=== PATIENT | female | born 1955 | race Caucasian/White ===

== ENCOUNTER 2016-10-08 18:45 | Emergency (ER) | payer MEDICARE, BC ==
--- OUTSIDE RECORDS SUMMARY | 2016-10-08 19:21 | XMS REPORT | Continuity of Care Document ---
:1955 Author Organization [facility] [place] [address] Care Team Providers Name Role Phone Jasvir Dunn Jr. Primary Care Provider [phone] Source Comments This disclosure is being made pursuant to the [employer] program and maynot contain all information available regarding this patient.[facility] Active Allergies and Adverse Reactions Not on File Current Medications Be aware that medications may not be up to date as of this document. Alwaysverify current medications with the patient. Not on file Active Problems Not on file Social History Tobacco Use Types Packs/Day Years Used Date Former Smoker Plan of Care Health Maintenance Due Date Last Done Comments Tetanus/Pertussis (1 - Tdap) 1976 Pap Smear 1978 Mammogram 2007 Well Adult Visit 2007 Influenza Immunization (#1) 2016 Colonoscopy 06/29/2019 06/29/2009 Results from Last 3 Months Not on file
--- OUTSIDE RECORDS SUMMARY | 2016-10-08 19:22 | XMS REPORT | Summary of Care ---
:1955 Author Organization [facility] Address [address] [place] [id number] Care Team Providers Name Role Phone Irina Estrada Primary Care Physician Encounter Date(s): 08/18/16 - 08/18/[address] [id number]- [place] Discharge Diagnosis: Difficulty concentrating Discharge Diagnosis: Degeneration of lumbar intervertebral disc Discharge Diagnosis: Fibromyalgia Discharge Diagnosis: Systemic lupus erythematosus Discharge Diagnosis: Recurrent depression Discharge Diagnosis: Bronchitis Discharge Diagnosis: Diabetes Discharge Diagnosis: Asthma Discharge Disposition: Discharged to Home or Self Care Attending Physician: Quintin Farmer MD Referring Physician: Quintin Faremr MD Vital Signs Most recent to oldest [Reference Range]: 1 Peripheral Pulse Rate [60-100 bpm] 70 bpm (08/18/16 3:00 PM) SpO2 [90-100 %] 97 % (08/18/16 3:00 PM) SpO2 Location Right hand (08/18/16 3:00 PM) Blood Pressure [90-130/60-90 mmHg] 122/78mmHg (08/18/16 3:00 PM) Mean Arterial Pressure, Cuff 93 mmHg (08/18/16 3:00 PM) Most recent to oldest [Reference Range]: 1 Height/Length Measured 167 cm (08/18/16 3:00 PM) Weight Dosing 109.20 kg1 (08/18/16 3:09 PM) Weight Measured 109.2 kg (08/18/16 3:00 PM) BSA Measured 2.16 m2 (08/18/16 3:00 PM) Body Mass Index Measured 39.16 kg/m2 (2/20/17 3:00 PM) 1Result Comment: This result was because the dosing weight was either not entered or it is>30 days old. This result is based off: Weight Measured August 18, 2016 15:00:00 ENGINE WIPER by Vladimir Arrieta CMA Problem List Condition Effective Dates Status Health Status Informant Activity tolerance(Confirmed) Active ADL - Support while performing an Active activity of daily living(Confirmed) Arthralgia of the lower leg(Confirmed) Active Arthritis(Confirmed) Active Cardiac murmur(Confirmed) Active Chronic pain syndrome(Confirmed) Active CVA - Cerebrovascular Active accident(Confirmed) Degenerative disc disease(Confirmed) Active Diabetes mellitus(Confirmed)1 Active Fibromyalgia(Confirmed) Active Fracture(Confirmed)2 Active Fracture of ankle(Confirmed) 1979 Active Fracture of femur(Confirmed) 1979 Active Fracture of tibia(Confirmed) 1979 Active Hypercholesterolemia(Confirmed) Active Asthma(Confirmed) Active Hypertension(Confirmed) Active Mobility impaired(Confirmed) Active OA [Osteoarthritis](Confirmed) Active Obstructive sleep apnea(Confirmed)3 Active Osteoarthrosis(Confirmed) Active Depression(Confirmed) Active Restless legs syndrome(Confirmed) Active Revision of knee 05/30/14 Active arthroplasty(Confirmed) Rotator cuff syndrome NOS(Confirmed) Active Sciatica(Confirmed) Active Septic arthritis of knee(Confirmed)4 Active Systemic lupus Active erythematosus(Confirmed) Bacterial infection of knee Active joint(Confirmed) Weakness(Confirmed) Active 1PT [id number] Allergies, Adverse Reactions, Alerts Substance Reaction Severity Status CeleBREX unusual dreams Active Cymbalta Rash Active gabapentin "fogginess" Active Lincomycin Hydrochloride [id number] 19:27:43<$> Active Lyrica Depression Active sulfa drugs Rash Active Medications albuterol 90 mcg/inh inhalation aerosol 1 puff(s), Inhale, QID, PRN for wheezing, # 18 gm, 0 Refill(s), Start Date: 16:18:37 ENGINE WIPER, Pharmacy: [facility] Start Date: 08/18/16 Status: Orderedalbuterol 90 mcg/inh inhalation aerosol 1 puff(s), Inhale, QID, PRN for wheezing, # 18 gm, 0 Refill(s), Start Date: 15:54:00 ENGINE WIPER Start Date: 08/18/16 Stop Date: 2/20/17 Status: Completedalbuterol HFA See Instructions, PRN shortness of breath or wheezing, inhale 2 puff every 4 hrs as needed Special Instructions: inhale 2 puff every 4 hrs as needed Start Date: 10/05/13 Stop Date: 01/11/14 Status: DiscontinuedALPRAZolam 1 mg oral tablet 1 tab(s), Oral, QID, PRN for anxiety, X 30 days, # 120 tab(s), 0 Refill(s), Start Date: 02/28/16 9:19:01 CDT Start Date: 02/28/16 Stop Date: 03/25/16 Status: CompletedALPRAZolam 1 mg oral tablet 1 tab(s), Oral, QID, PRN for anxiety, X 30 days, # 120 tab(s), 1 Refill(s), Start Date: 04/03/15 15:21:40 CDT Start Date: 04/03/15 Stop Date: 05/16/15 Status: CompletedALPRAZolam 1 mg oral tablet 1 tab(s), Oral, QID, PRN for anxiety, # 120 tab(s), 0 Refill(s), Start Date: 13:36:26 ENGINE WIPER Start Date: 07/25/16 Stop Date: 08/24/16 Status: OrderedALPRAZolam 1 mg oral tablet 1 tab(s), Oral, QID, PRN for anxiety, X 30 days, # 120 tab(s), 1 Refill(s), Start Date: 09/28/15 12:32:00 CDT Start Date: 09/28/15 Stop Date: 11/27/15 Status: CompletedALPRAZolam 1 mg oral tablet 1 tab(s), Oral, QID, PRN for anxiety, X 30 days, # 120 tab(s), 1 Refill(s) Start Date: 01/20/14 Stop Date: 02/07/14 Status: CompletedALPRAZolam 1 mg oral tablet 1 tab(s), Oral, QID, PRN for anxiety, X 30 days, # 120 tab(s), 0 Refill(s), Start Date: 06/24/16 10:41:01 ENGINE WIPER Start Date: 06/24/16 Stop Date: 07/25/16 Status: CompletedALPRAZolam 1 mg oral tablet 1 tab(s), Oral, QID, PRN for anxiety, # 120 tab(s), 1 Refill(s) Start Date: 11/29/13 Stop Date: 01/20/14 Status: DiscontinuedALPRAZolam 1 mg oral tablet 1 tab(s), Oral, QID, PRN for anxiety, X 30 days, # 120 tab(s), 0 Refill(s), Start Date: 04/29/16 11:20:50 CDT Start Date: 04/29/16 Stop Date: 05/28/16 Status: CompletedALPRAZolam 1 mg oral tablet 1 tab(s), Oral, QID, PRN for anxiety, called to Ruy at [facility] - they did not receive order on 01/20/14, X 30 days, # 120 tab(s), 1 Refill(s), called to pharmacy (Rx) Special Instructions: called to Ruy at [facility] - they did not receive order on Start Date: 02/07/14 Stop Date: 04/03/14 Status: CompletedALPRAZolam 1 mg oral tablet 1 tab(s), Oral, QID, PRN for anxiety Start Date: 10/05/13 Stop Date: 10/11/13 Status: DiscontinuedALPRAZolam 1 mg oral tablet 1 tab(s), Oral, QID, PRN for anxiety, # 120 tab(s), 0 Refill(s) Start Date: 11/02/13 Stop Date: 11/29/13 Status: DiscontinuedALPRAZolam 1 mg oral tablet 1 tab(s), Oral, QID, PRN for anxiety, X 30 days, # 120 tab(s), 0 Refill(s), Start Date: 01/29/16 8:35:18 CDT Start Date: 01/29/16 Stop Date: 02/28/16 Status: CompletedALPRAZolam 1 mg oral tablet 1 tab(s), Oral, QID, PRN for anxiety, X 30 days, # 120 tab(s), 0 Refill(s) Start Date: 10/12/13 Stop Date: 11/02/13 Status: CompletedALPRAZolam 1 mg oral tablet 1 tab(s), Oral, QID, PRN for anxiety, DO NOT REFILL UNTIL 11/28/15, X 30 days, # 120 tab(s), 1 Refill(s), Start Date: 11/28/15 17:21:00 CDT Special Instructions: DO NOT REFILL UNTIL 11/28/15 Start Date: 11/28/15 Stop Date: 01/29/16 Status: CompletedALPRAZolam 1 mg oral tablet 1 tab(s), Oral, QID, PRN for anxiety, rashids-Swati, # 120 tab(s), 1 Refill(s), Start Date: 07/28/14 15:29:44 ENGINE WIPER, called to pharmacy (Rx) Special Instructions: rashids-Swati Start Date: 07/28/14 Stop Date: 10/05/14 Status: DiscontinuedALPRAZolam 1 mg oral tablet 1 tab(s), Oral, QID, PRN for anxiety, X 30 days, # 120 tab(s), 0 Refill(s) Start Date: 10/11/13 Stop Date: 10/12/13 Status: CompletedALPRAZolam 1 mg oral tablet 1 tab(s), Oral, QID, PRN for anxiety, rashids-Swati, X 30 days, # 30 tab(s), 1 Refill(s), Start Date: 10/05/14 13:59:53 CDT, Pharmacy: [facility] [place] Special Instructions: rashids-Swati Start Date: 10/05/14 Stop Date: 12/11/14 Status: CompletedALPRAZolam 1 mg oral tablet 1 tab(s), Oral, QID, PRN for anxiety, X 30 days, # 120 tab(s), 0 Refill(s), Start Date: 03/25/16 13:11:30 CDT Start Date: 03/25/16 Stop Date: 04/29/16 Status: CompletedALPRAZolam 1 mg oral tablet 1 tab(s), Oral, QID, PRN for anxiety, X 30 days, # 120 tab(s), 1 Refill(s), Start Date: 07/19/15 14:26:38 ENGINE WIPER, called to pharmacy (Rx) Start Date: 07/19/15 Stop Date: 09/25/15 Status: CompletedALPRAZolam 1 mg oral tablet 1 tab(s), Oral, QID, PRN for anxiety, rashids- samia, X 30 days, # 120 tab(s), 1 Refill(s), Start Date: 04/03/14 8:55:22 CDT Special Instructions: rashids- samia Start Date: 04/03/14 Stop Date: 05/29/14 Status: CompletedALPRAZolam 1 mg oral tablet 1 tab(s), Oral, QID, PRN for anxiety, X 30 days, # 120 tab(s), 1 Refill(s), Start Date: 05/16/15 10:40:02 ENGINE WIPER, called to pharmacy (Rx) Start Date: 05/16/15 Stop Date: 07/19/15 Status: CompletedALPRAZolam 1 mg oral tablet 1 tab(s), Oral, QID, PRN for anxiety, X 30 days, # 120 tab(s), 1 Refill(s), Start Date: 01/29/15 15:37:44 CDT, called to pharmacy (Rx) Start Date: 01/29/15 Stop Date: 03/02/15 Status: CompletedALPRAZolam 1 mg oral tablet 1 tab(s), Oral, QID, PRN for anxiety, X 30 days, # 120 tab(s), 1 Refill(s), Start Date: 12/12/14 12:42:33 CDT Start Date: 12/12/14 Stop Date: 01/29/15 Status: CompletedALPRAZolam 1 mg oral tablet 1 tab(s), Oral, QID, PRN for anxiety, X 30 days, # 30 tab(s), 1 Refill(s), Start Date: 12/11/14 8:45:58 CDT Start Date: 12/11/14 Stop Date: 12/12/14 Status: CompletedALPRAZolam 1 mg oral tablet 1 tab(s), Oral, QID, PRN for anxiety, X 30 days, # 120 tab(s), 1 Refill(s), Start Date: 03/02/15 14:37:24 CDT, called to pharmacy (Rx) Start Date: 03/02/15 Stop Date: 04/03/15 Status: CompletedALPRAZolam 1 mg oral tablet 1 tab(s), Oral, QID, PRN for anxiety, rashids- Elke, X 30 days, # 120 tab(s) , 1 Refill(s), Start Date: 05/29/14 15:05:24 ENGINE WIPER, called to pharmacy (Rx) Special Instructions: nahomy Bedoya Start Date: 05/29/14 Stop Date: 07/28/14 Status: CompletedALPRAZolam 1 mg oral tablet 1 tab(s), Oral, QID, PRN for anxiety, X 30 days, # 120 tab(s), 0 Refill(s), Start Date: 05/28/16 10:37:33 ENGINE WIPER Start Date: 05/28/16 Stop Date: 06/24/16 Status: CompletedaMILoride 10 mg, Oral, Daily, 0 Refill(s), Start Date: 09/15/14 11:35:00 CDT Start Date: 09/15/14 Stop Date: 10/05/14 Status: DiscontinuedaMILoride 5 mg oral tablet 10 mg, Oral, Daily, # 60 tab(s), 0 Refill(s), Start Date: 10/05/14 13:51:00 CDT , Pharmacy: [place], [place] Start Date: 10/05/14 Stop Date: 12/11/14 Status: CompletedaMILoride 5 mg oral tablet 1 tab(s), Oral, Daily, with food, # 30 tab(s), 11 Refill(s), Start Date: 16:21:00 CDT Special Instructions: with food Start Date: 01/20/14 Stop Date: 06/20/14 Status: CompletedaMILoride 5 mg oral tablet 1 tab(s), Oral, Daily, with food, # 30 tab(s), 5 Refill(s), Start Date: 14:57:25 ENGINE WIPER, Pharmacy: [place], [place] Special Instructions: with food Start Date: 06/20/14 Stop Date: 08/18/14 Status: CompletedaMILoride 5 mg oral tablet 1 tab(s), Oral, Daily, with food Special Instructions: with food Start Date: 10/05/13 Stop Date: 01/20/14 Status: DiscontinuedaMILoride 5 mg oral tablet 2 tab(s), Oral, Daily, X 30 days, # 60 tab(s), 11 Refill(s), Start Date: 14:06:11 CDT, Pharmacy: [place], [place] Start Date: 10/09/15 Stop Date: 02/19/16 Status: CompletedaMILoride 5 mg oral tablet 2 tab(s), Oral, Daily, # 180 tab(s), 3 Refill(s), Start Date: 02/19/16 15:42:03 CDT, Pharmacy: [place] Start Date: 02/19/16 Status: OrderedaMILoride 5 mg oral tablet 2 tab(s), Oral, Daily, X 30 days, # 60 tab(s), 11 Refill(s), Start Date: 9:02:37 CDT, Pharmacy: [place] Start Date: 12/11/14 Stop Date: 10/09/15 Status: CompletedaMILoride 5 mg oral tablet 2 tab(s), Oral, Daily, with food, # 30 tab(s), 11 Refill(s), Start Date: 9:37:00 ENGINE WIPER, Pharmacy: [place], [place] Special Instructions: discontinued on 09/15 when dosage was changed Start Date: 08/21/14 Stop Date: 09/27/14 Status: DiscontinuedaMILoride 5 mg oral tablet 1 tab(s), Oral, Daily, with food, # 30 tab(s), 5 Refill(s), Start Date: 16:15:02 ENGINE WIPER, Pharmacy: [place] Special Instructions: with food Start Date: 08/18/14 Stop Date: 08/21/14 Status: CompletedAquaphilic 1 morales, Topical, BID, 0 Refill(s), Start Date: 10/05/14 13:50:00 CDT Start Date: 10/05/14 Status: OrderedAyr Saline Mist 0.65% nasal spray 2 spray(s), Nasal, QID, PRN congestion, 0 Refill(s), Start Date: 10/05/14 13:45: 00 CDT Start Date: 10/05/14 Status: Orderedcalcium (as carbonate)-vitamin D 500 mg-200 intl units oral tablet tab(s), Oral, Daily Start Date: 10/05/13 Stop Date: 11/02/13 Status: Discontinuedcephalexin 500 mg oral capsule 1 cap(s), Oral, QID, X 14 days, # 56 cap(s), 0 Refill(s), Start Date: 04/13/15 17:33:00 CDT, other reason (Rx) Start Date: 04/13/15 Stop Date: 06/25/16 Status: Completedcephalexin 500 mg oral capsule 1 cap(s), Oral, QID, # 120 cap(s), 0 Refill(s), Start Date: 08/01/16 9:30:44 ENGINE WIPER , Pharmacy: [facility] Start Date: 08/01/16 Stop Date: 08/31/16 Status: Orderedcephalexin 500 mg oral capsule 1 cap(s), Oral, QID, X 30 days, # 120 cap(s), 0 Refill(s), Start Date: 06/25/16 15:35:25 ENGINE WIPER, Pharmacy: [place] Start Date: 06/25/16 Stop Date: 06/26/16 Status: Completedcephalexin 500 mg oral capsule 1 cap(s), Oral, QID, X 30 days, # 120 cap(s), 0 Refill(s), Start Date: 06/26/16 15:21:18 ENGINE WIPER, Pharmacy: [facility] Start Date: 06/26/16 Stop Date: 08/01/16 Status: Completedciprofloxacin 500 mg oral tablet 1 tab(s), Oral, q12hr, # 14 tab(s), 1 Refill(s), Start Date: 12/07/14 14:22:00 CDT, Pharmacy: [place] Start Date: 12/07/14 Stop Date: 04/13/15 Status: Discontinuedcitalopram 20 mg oral tablet 2 tab(s), Oral, Daily, # 180 tab(s), 3 Refill(s), Start Date: 03/06/16 17:22:46 CDT, Pharmacy: [place] Start Date: 03/06/16 Status: Orderedcitalopram 20 mg oral tablet 2 tab(s), Oral, Daily, X 30 days, # 60 tab(s), 0 Refill(s), Start Date: 9:11:10 CDT, Pharmacy: [place] Start Date: 02/08/16 Stop Date: 02/19/16 Status: Completedcitalopram 20 mg oral tablet 1 tab(s), Oral, Daily, X 30 days, # 30 tab(s), 0 Refill(s), Start Date: 17:21:00 CDT, Pharmacy: [place] Start Date: 01/12/15 Stop Date: 01/30/15 Status: Completedcitalopram 20 mg oral tablet 1 tab(s), Oral, Daily, # 30 tab(s), 0 Refill(s), Start Date: 01/12/15 17:20:00 CDT Start Date: 01/12/15 Stop Date: 01/12/15 Status: Discontinuedcitalopram 20 mg oral tablet 2 tab(s), Oral, Daily, X 30 days, # 60 tab(s), 11 Refill(s), Start Date: 16:04:57 CDT, Pharmacy: [place] Start Date: 01/30/15 Stop Date: 02/08/16 Status: Completedcitalopram 20 mg oral tablet 2 tab(s), Oral, Daily, # 180 tab(s), 3 Refill(s), Start Date: 02/19/16 15:42:12 CDT, Pharmacy: [place] Start Date: 02/19/16 Stop Date: 03/06/16 Status: CompletedclonazePAM 1 mg, Oral, HS, 0 Refill(s), Start Date: 10/05/14 13:44:00 CDT Start Date: 10/05/14 Stop Date: 10/17/14 Status: DiscontinuedclonazePAM 1 mg oral tablet 1 mg, Oral, HS, X 30 days, # 30 tab(s), 0 Refill(s), Start Date: 01/01/16 15:49: 46 CDT, called to pharmacy (Rx) Start Date: 01/01/16 Stop Date: 02/08/16 Status: CompletedclonazePAM 1 mg oral tablet 1 tab(s), Oral, HS, [facility] # [facility] tab(s), 0 Refill(s), called to pharmacy (Rx) Special Instructions: [facility] Start Date: 11/01/13 Stop Date: 09/27/14 Status: CompletedclonazePAM 1 mg oral tablet 1 mg, Oral, HS, # 14 tab(s), 0 Refill(s), Start Date: 09/14/14 11:20:00 CDT, Pharmacy: [facility] Start Date: 09/14/14 Stop Date: 09/26/14 Status: CompletedclonazePAM 1 mg oral tablet 1 mg, Oral, HS, X 30 days, # 30 tab(s), 0 Refill(s), Start Date: 07/05/15 15:29: 26 ENGINE WIPER Start Date: 07/05/15 Stop Date: 08/02/15 Status: CompletedclonazePAM 1 mg oral tablet 1 mg, Oral, HS, X 30 days, # 30 tab(s), 0 Refill(s), Start Date: 10/17/14 14:39: 00 CDT Start Date: 10/17/14 Stop Date: 12/11/14 Status: CompletedclonazePAM 1 mg oral tablet 1 mg, Oral, HS, # 30 tab(s), 0 Refill(s), Start Date: 06/26/15 14:17:51 ENGINE WIPER, called to pharmacy (Rx) Start Date: 06/26/15 Stop Date: 07/05/15 Status: CompletedclonazePAM 1 mg oral tablet 1 mg, Oral, HS, X 30 days, # 30 tab(s), 0 Refill(s), Start Date: 02/08/16 14:34: 57 CDT, called to pharmacy (Rx) Start Date: 02/08/16 Stop Date: 05/30/16 Status: CompletedclonazePAM 1 mg oral tablet 1 mg, Oral, HS, # 14 tab(s), 1 Refill(s), Start Date: 09/26/14 16:49:15 CDT, Pharmacy: [facility] Start Date: 09/26/14 Stop Date: 10/05/14 Status: DiscontinuedclonazePAM 1 mg oral tablet 1 mg, Oral, HS, X 30 days, # 30 tab(s), 5 Refill(s), Start Date: 08/02/15 14:57: 26 ENGINE WIPER, other reason (Rx) Start Date: 08/02/15 Stop Date: 01/01/16 Status: CompletedclonazePAM 1 mg oral tablet 1 mg, Oral, HS, X 30 days, # 30 tab(s), 1 Refill(s), Start Date: 12/11/14 8:47: 55 CDT Start Date: 12/11/14 Stop Date: 12/11/14 Status: CompletedclonazePAM 1 mg oral tablet 1 mg, Oral, HS, # 30 tab(s), 1 Refill(s), Start Date: 12/11/14 10:12:43 CDT Start Date: 12/11/14 Stop Date: 05/18/15 Status: DiscontinuedclonazePAM 1 mg oral tablet 1 mg, Oral, HS, # 30 tab(s), 2 Refill(s), Start Date: 05/30/16 15:36:06 ENGINE WIPER, called to pharmacy (Rx) Start Date: 05/30/16 Stop Date: 06/24/16 Status: CompletedclonazePAM 1 mg oral tablet 1 mg, Oral, HS, X 30 days, # 30 tab(s), 5 Refill(s), Start Date: 05/18/15 12:47: 36 ENGINE WIPER Start Date: 05/18/15 Stop Date: 06/26/15 Status: CompletedclonazePAM 1 mg oral tablet 1 tab(s), Oral, HS Start Date: 10/05/13 Stop Date: 11/01/13 Status: DiscontinuedCompazine 10 mg, Oral, QID, # 30 tab(s), 2 Refill(s) Start Date: 11/14/13 Stop Date: 11/14/13 Status: DiscontinuedCoumadin 2 mg oral tablet See Instructions, as directed by coumadin clinic, # 60 tab(s), 1 Refill(s), Start Date: 10/27/14 8:04:00 CDT, other reason (Rx) Special Instructions: as directed by coumadin clinic Start Date: 10/27/14 Stop Date: 04/13/15 Status: DiscontinuedCoumadin 2 mg oral tablet See Instructions, as directed by coumadin [facility], # 60 tab(s), 1 Refill(s), Start Date: 08/30/14 8:21:00 ENGINE WIPER, other reason (Rx) Special Instructions: as directed by coumadin clin Start Date: 08/30/14 Stop Date: 10/03/14 Status: Completeddiclofenac potassium 50 mg oral tablet 1 tab(s), Oral, QID, PRN as needed for arthritis, X 30 days, # 120 tab(s), 11 Refill(s), Start Date: 10/31/15 9:43:00 CDT, Pharmacy: [place] Start Date: 10/31/15 Stop Date: 02/19/16 Status: Completeddiclofenac potassium 50 mg oral tablet 1 tab(s), Oral, QID, PRN as needed for arthritis, 0 Refill(s), Start Date: 10/30 9:42:00 CDT Start Date: 10/31/15 Stop Date: 10/31/15 Status: Discontinueddiclofenac potassium 50 mg oral tablet 1 tab(s), Oral, QID, PRN as needed for arthritis, # 360 tab(s), 3 Refill(s), Start Date: 02/19/16 15:42:25 CDT, Pharmacy: [place] Start Date: 02/19/16 Stop Date: 02/27/16 Status: CompletedDME - Wheelchair standard See Instructions, Diagnosis Code: 81.54 Length of Need: 3 years, # 1 EA, 0 Refill(s), 10/05/14 12:54:00 CDT, called to pharmacy (Rx), Supply Special Instructions: Diagnosis Code: 81.54 Length of Need : 3 years Start Date: 10/05/14 Stop Date: 10/05/14 Status: Discontinueddoxycycline hyclate 100 mg oral capsule 1 cap(s), Oral, BID, # 14 cap(s), 0 Refill(s), Start Date: 08/18/16 16:18:02 ENGINE WIPER , Pharmacy: [facility] Start Date: 08/18/16 Stop Date: 08/25/16 Status: Ordereddoxycycline hyclate 100 mg oral capsule 1 cap(s), Oral, BID, X 7 days, # 14 cap(s), 0 Refill(s), Start Date: 08/18/16 15 :53:00 ENGINE WIPER Start Date: 08/18/16 Stop Date: 08/18/16 Status: CompletedElevated Leg Lift for Wheelchair Elevated Leg Lift for Wheelchair 1 EA, N/A, ONETIME, # 1 EA, 0 Refill(s), 13:49:00 CDT, samples given to patient (Rx) Start Date: 10/05/14 Status: OrderedFlexeril 10 mg oral tablet 2 tab(s), Oral, BID, # 30 tab(s), 1 Refill(s) Start Date: 01/20/14 Stop Date: 02/01/14 Status: CompletedFlexeril 10 mg oral tablet 1 tab(s), Oral, TID, # 90 tab(s), 5 Refill(s), Start Date: 11/16/15 15:39:00 CDT , Pharmacy: [place], [place] Start Date: 11/16/15 Stop Date: 05/28/16 Status: CompletedFlexeril 10 mg oral tablet 2 tab(s), Oral, BID, # 120 tab(s), 1 Refill(s), Start Date: 05/08/14 14:20:57 ENGINE WIPER, Pharmacy: [place] Start Date: 05/08/14 Stop Date: 10/05/14 Status: DiscontinuedFlexeril 10 mg oral tablet 2 tab(s), Oral, BID, # 120 tab(s), 0 Refill(s), Pharmacy: [facility] Start Date: 10/19/13 Stop Date: 01/20/14 Status: DiscontinuedFlexeril 10 mg oral tablet 2 tab(s), Oral, BID, # 120 tab(s), 1 Refill(s), Start Date: 02/01/14 10:26:24 CDT, Pharmacy: [facility] Start Date: 02/01/14 Stop Date: 05/08/14 Status: CompletedFlexeril 10 mg oral tablet 2 tab(s), Oral, BID Start Date: 10/05/13 Stop Date: 10/19/13 Status: DiscontinuedFlexeril 10 mg oral tablet 1 tab(s), Oral, TID, # 90 tab(s), 5 Refill(s), Start Date: 05/28/16 10:37:54 ENGINE WIPER Start Date: 05/28/16 Stop Date: 06/24/16 Status: CompletedFlexeril 5 mg oral tablet 1-2 tab(s), Oral, TID, PRN as needed for muscle spasm, # 60 tab(s), 1 Refill(s) , Start Date: 10/09/15 8:39:42 CDT, Pharmacy: [facility] [place], [place] Start Date: 10/09/15 Stop Date: 11/07/15 Status: CompletedFlexeril 5 mg oral tablet 1-2 tab(s), Oral, TID, PRN as needed for muscle spasm, # 60 tab(s), 1 Refill(s) , Start Date: 11/07/15 14:49:45 CDT, Pharmacy: [facility] [place], [place] Start Date: 11/07/15 Stop Date: 11/16/15 Status: DiscontinuedFlexeril 5 mg oral tablet 1-2 tab(s), Oral, TID, PRN as needed for muscle spasm, # 60 tab(s), 1 Refill(s) , Start Date: 06/07/15 9:01:00 ENGINE WIPER, Pharmacy: [facility] [place], [place] Start Date: 06/07/15 Stop Date: 10/09/15 Status: CompletedFlexeril 5 mg oral tablet 1-2 tab(s), Oral, TID, PRN as needed for muscle spasm, # 60 tab(s), 0 Refill(s) , Start Date: 06/07/15 9:00:00 ENGINE WIPER Start Date: 06/07/15 Stop Date: 06/07/15 Status: DiscontinuedFlorastor 250 mg oral capsule 1 cap(s), Oral, BID, X 30 days, # 60 cap(s), 0 Refill(s), Start Date: 12/11/14 16:14:37 CDT, Pharmacy: [facility] [place], [place] Start Date: 12/11/14 Stop Date: 01/18/15 Status: CompletedFlorastor 250 mg oral capsule 250 mg, Oral, BID, # 14 cap(s), 0 Refill(s), Start Date: 10/05/14 13:45:00 CDT, Pharmacy: [place], [place] Start Date: 10/05/14 Stop Date: 12/11/14 Status: CompletedFlorastor 250 mg oral capsule 250 mg, Oral, BID, # 60 tab(s), 0 Refill(s), Start Date: 12/11/14 14:46:49 CDT, Pharmacy: [place] Start Date: 12/11/14 Stop Date: 12/11/14 Status: DiscontinuedFlorastor 250 mg oral capsule 1 cap(s), Oral, BID, # 60 cap(s), 0 Refill(s), Start Date: 01/18/15 15:38:00 CDT , Pharmacy: [place] Start Date: 01/18/15 Stop Date: 05/18/15 Status: DiscontinuedKlonoPIN 1 mg oral tablet 1 tab(s), Oral, Daily Start Date: 10/05/13 Stop Date: 10/17/13 Status: Discontinuedlevofloxacin 500 mg oral tablet 1 tab(s), Oral, Daily, # 7 tab(s), 0 Refill(s), Start Date: 10/31/14 16:53:00 CDT Start Date: 10/31/14 Stop Date: 11/14/14 Status: DiscontinuedLidoderm 5% topical film 2 patch(es), Topical, Daily, remove patches after 12 hours, # 30 patch(es), 3 Refill(s), Start Date: 01/20/14 16:24:00 CDT Special Instructions: remove patches after 12 hours Start Date: 01/20/14 Stop Date: 04/21/14 Status: CompletedLidoderm 5% topical film 2 patch(es), Topical, Daily, remove patches after 12 hours, # 30 patch(es), 3 Refill(s), Start Date: 04/21/14 18:05:32 CDT, Pharmacy: [place], [place] Special Instructions: remove patches after 12 hours Start Date: 04/21/14 Stop Date: 04/24/14 Status: CompletedLidoderm 5% topical film 2 patch(es), Topical, Daily, remove patches after 12 hours Special Instructions: remove patches after 12 hours Start Date: 10/05/13 Stop Date: 01/20/14 Status: DiscontinuedLidoderm 5% topical film 2 patch(es), Topical, Daily, remove patches after 12 hours, # 30 patch(es), 3 Refill(s), Start Date: 04/24/14 14:27:00 CDT Special Instructions: remove patches after 12 hours Start Date: 04/24/14 Stop Date: 10/05/14 Status: Discontinuedlisinopril 5 mg oral tablet 1 tab(s), Oral, Daily, # 30 tab(s), 11 Refill(s), Start Date: 08/23/14 9:46:13 [employer], Pharmacy: [place], [place] Start Date: 08/23/14 Stop Date: 10/05/14 Status: Discontinuedlisinopril 5 mg oral tablet 1 tab(s), Oral, Daily, # 30 tab(s), 11 Refill(s), Start Date: 01/20/14 16:25:00 CDT Start Date: 01/20/14 Stop Date: 08/23/14 Status: Completedlisinopril 5 mg oral tablet 1 tab(s), Oral, Daily Start Date: 10/05/13 Stop Date: 01/20/14 Status: Discontinuedloperamide 2 mg oral capsule 1 cap(s), Oral, q4hr, PRN for loose stool, # 30 cap(s), 0 Refill(s), Start Date : 10/05/14 13:58:00 CDT, Pharmacy: [place], [place] Start Date: 10/05/14 Status: Orderedloperamide 2 mg oral capsule 1 cap(s), Oral, q4hr, PRN for loose stool, # 60 cap(s), 0 Refill(s), Start Date : 09/07/14 16:09:00 CDT Start Date: 09/07/14 Stop Date: 10/05/14 Status: Discontinuedmethadone 5 mg oral tablet 5 mg, Oral, q12hr, # 10 tab(s), 0 Refill(s), Start Date: 09/05/14 16:11:00 CDT, Pharmacy: [facility] Start Date: 09/05/14 Stop Date: 09/11/14 Status: Discontinuedmethadone 5 mg oral tablet 5 mg, Oral, q12hr, # 60 tab(s), 0 Refill(s), Start Date: 10/05/14 13:52:42 CDT, Pharmacy: [facility] [place] Start Date: 10/05/14 Stop Date: 10/27/14 Status: Discontinuedmethadone 5 mg oral tablet 5 mg, Oral, q12hr, # 10 tab(s), 0 Refill(s), Start Date: 09/11/14 15:42:57 CDT, Pharmacy: [facility] Start Date: 09/11/14 Stop Date: 09/15/14 Status: Discontinuedmethadone 5 mg oral tablet 5 mg, Oral, q12hr, # 15 tab(s), 0 Refill(s), Start Date: 09/29/14 16:01:26 CDT, [facility] Start Date: 09/29/14 Stop Date: 10/05/14 Status: Discontinuedmethadone 5 mg oral tablet 5 mg, Oral, q12hr, # 30 tab(s), 0 Refill(s), Start Date: 09/15/14 10:51:41 CDT, [facility] Start Date: 09/15/14 Stop Date: 09/29/14 Status: Discontinuedmetolazone 2.5 mg oral tablet See Instructions, 1 tab(s) Oral SUNDAYS AND THURSDAYS, 0 Refill(s), Start Date: 08/22/14 15:25:00 ENGINE WIPER Special Instructions: 1 tab(s) Oral SUNDAYS AND THURSDAYS Start Date: 08/22/14 Stop Date: 08/22/14 Status: DiscontinuedMintox 10 mL, Oral, QIDPCHS, PRN acid, stomach, 0 Refill(s), Start Date: 10/05/14 13:50 :00 CDT Start Date: 10/05/14 Status: Orderedmorphine 100 mg/12 hours oral capsule, extended release 1 cap(s), Oral, q12hr interval, # 60 cap(s), 0 Refill(s), Start Date: 07/25/16 13:36:47 ENGINE WIPER Start Date: 07/25/16 Stop Date: 08/24/16 Status: Orderedmorphine 100 mg/12 hours oral capsule, extended release 1 cap(s), Oral, q12hr interval, X 30 days, # 60 cap(s), 0 Refill(s), Start Date : 06/24/16 10:41:41 ENGINE [employer]IPER Start Date: 06/24/16 Stop Date: 07/25/16 Status: Completedmorphine 100 mg/12 hours oral capsule, extended release 1 cap(s), Oral, q12hr interval, X 30 days, # 60 cap(s), 0 Refill(s), Start Date : 02/28/16 10:30:31 CDT Start Date: 02/28/16 Stop Date: 03/25/16 Status: Completedmorphine 100 mg/12 hours oral capsule, extended release 1 cap(s), Oral, q12hr interval, # 60 cap(s), 0 Refill(s), Start Date: 02/28/16 10:29:00 CDT Start Date: 02/28/16 Stop Date: 02/28/16 Status: Discontinuedmorphine 100 mg/12 hours oral capsule, extended release 1 cap(s), Oral, q12hr interval, X 30 days, # 60 cap(s), 0 Refill(s), Start Date : 04/29/16 11:21:43 CDT Start Date: 04/29/16 Stop Date: 05/28/16 Status: Completedmorphine 100 mg/12 hours oral capsule, extended release 1 cap(s), Oral, q12hr interval, X 30 days, # 60 cap(s), 0 Refill(s), Start Date : 03/25/16 13:11:56 CDT Start Date: 03/25/16 Stop Date: 04/29/16 Status: Completedmorphine 100 mg/12 hours oral capsule, extended release 1 cap(s), Oral, q12hr interval, X 30 days, # 60 cap(s), 0 Refill(s), Start Date : 05/28/16 10:39:56 ENGINE WIPER Start Date: 05/28/16 Stop Date: 06/24/16 Status: Completedmorphine 15 mg oral tablet 1 tab(s), Oral, QID, PRN for pain, X 30 days, # 120 tab(s), 0 Refill(s), Start Date: 04/24/14 14:26:21 CDT Start Date: 04/24/14 Stop Date: 05/24/14 Status: Completedmorphine 15 mg oral tablet 1 tab(s), Oral, q6hr interval, PRN for pain, X 30 days, # 120 tab(s), 0 Refill(s ), Start Date: 02/28/16 9:19:25 CDT Start Date: 02/28/16 Stop Date: 03/25/16 Status: Completedmorphine 15 mg oral tablet 1 tab(s), Oral, QID, PRN for pain, X 30 days, # 120 tab(s), 0 Refill(s) Start Date: 01/27/14 Stop Date: 03/24/14 Status: Completedmorphine 15 mg oral tablet 1 tab(s), Oral, q6hr interval, PRN for pain, # 120 tab(s), 0 Refill(s), Start Date: 04/03/15 15:22:10 CDT Start Date: 04/03/15 Stop Date: 05/01/15 Status: Completedmorphine 15 mg oral tablet 1 tab(s), Oral, q6hr interval, PRN for pain, X 30 days, # 120 tab(s), 0 Refill(s ), Start Date: 09/28/15 12:33:00 CDT Start Date: 09/28/15 Stop Date: 10/28/15 Status: Completedmorphine 15 mg oral tablet 1 tab(s), Oral, QID, PRN for pain, X 30 days, # 120 tab(s), 0 Refill(s), Start Date: 05/26/14 15:39:00 ENGINE WIPER Start Date: 05/26/14 Stop Date: 06/26/14 Status: Completedmorphine 15 mg oral tablet 1 tab(s), Oral, QID, PRN for pain, X 30 days, # 120 tab(s), 0 Refill(s), Start Date: 07/26/14 15:04:45 ENGINE WIPER Start Date: 07/26/14 Stop Date: 07/27/14 Status: Completedmorphine 15 mg oral tablet 1 tab(s), Oral, QID, PRN for pain, # 120 tab(s), 0 Refill(s) Start Date: 11/29/13 Stop Date: 01/02/14 Status: Completedmorphine 15 mg oral tablet 1 tab(s), Oral, q6hr interval, PRN for pain, X 30 days, # 120 tab(s), 0 Refill(s ), Start Date: 06/04/15 9:11:19 ENGINE WIPER Start Date: 06/04/15 Stop Date: 06/28/15 Status: Completedmorphine 15 mg oral tablet 1 tab(s), Oral, q6hr interval, PRN for pain, X 30 days, # 120 tab(s), 0 Refill(s ), Start Date: 04/29/16 11:21:13 CDT Start Date: 04/29/16 Stop Date: 05/28/16 Status: Completedmorphine 15 mg oral tablet 1 tab(s), Oral, q6hr interval, PRN for pain, # 120 tab(s), 0 Refill(s), Start Date: 10/31/14 16:52:00 CDT Start Date: 10/31/14 Stop Date: 12/11/14 Status: Completedmorphine 15 mg oral tablet 1 tab(s), Oral, QID, PRN for pain, # 120 tab(s), 0 Refill(s) Start Date: 11/02/13 Stop Date: 11/29/13 Status: Discontinuedmorphine 15 mg oral tablet 1 tab(s), Oral, q6hr interval, PRN for pain, DO NOT REFILL UNTIL 08/25/15, X 30 days, # 120 tab(s), 0 Refill(s), Start Date: 08/25/15 14:59:00 ENGINE WIPER Special Instructions: DO NOT REFILL UNTIL 08/25/15 Start Date: 08/25/15 Stop Date: 09/25/15 Status: Completedmorphine 15 mg oral tablet 1 tab(s), Oral, q6hr interval, PRN for pain, X 30 days, # 120 tab(s), 0 Refill(s ), Start Date: 01/29/16 8:37:00 CDT Start Date: 01/29/16 Stop Date: 02/28/16 Status: Completedmorphine 15 mg oral tablet 1 tab(s), Oral, q6hr interval, PRN for pain, X 30 days, # 120 tab(s), 0 Refill(s ), Start Date: 10/28/15 17:17:00 CDT Start Date: 10/28/15 Stop Date: 11/27/15 Status: Completedmorphine 15 mg oral tablet 1 tab(s), Oral, q6hr interval, PRN for pain, DO NOT REFILL UNTIL 11/28/15, X 30 days, # 120 tab(s), 0 Refill(s), Start Date: 11/28/15 17:23:00 CDT Special Instructions: DO NOT REFILL UNTIL 11/28/15 Start Date: 11/28/15 Stop Date: 12/27/15 Status: Completedmorphine 15 mg oral tablet 1 tab(s), Oral, q6hr interval, PRN for pain, X 30 days, # 120 tab(s), 0 Refill(s ), Start Date: 05/04/15 13:24:00 ENGINE WIPER Start Date: 05/04/15 Stop Date: 06/04/15 Status: Completedmorphine 15 mg oral tablet 1 tab(s), Oral, QID, PRN for pain, X 30 days, # 120 tab(s), 0 Refill(s), Start Date: 03/24/14 12:44:38 CDT Start Date: 03/24/14 Stop Date: 04/24/14 Status: Completedmorphine 15 mg oral tablet 1 tab(s), Oral, QID, PRN for pain, # 120 tab(s), 0 Refill(s) Start Date: 01/02/14 Stop Date: 01/26/14 Status: Completedmorphine 15 mg oral tablet 1 tab(s), Oral, q6hr interval, PRN for pain, X 30 days, # 120 tab(s), 0 Refill(s ), Start Date: 03/25/16 13:12:18 CDT Start Date: 03/25/16 Stop Date: 04/29/16 Status: Completedmorphine 15 mg oral tablet 1 tab(s), Oral, q6hr interval, PRN for pain, X 30 days, # 120 tab(s), 0 Refill(s ), Start Date: 12/27/15 15:26:00 CDT Start Date: 12/27/15 Stop Date: 01/29/16 Status: Completedmorphine 15 mg oral tablet 1 tab(s), Oral, q6hr interval, PRN for pain, # 120 tab(s), 0 Refill(s), Start Date: 12/11/14 8:48:55 CDT Start Date: 12/11/14 Stop Date: 04/03/15 Status: Completedmorphine 15 mg oral tablet 1 tab(s), Oral, QID, PRN for pain, X 30 days, # 120 tab(s), 0 Refill(s), Start Date: 06/26/14 11:45:39 ENGINE WIPER Start Date: 06/26/14 Stop Date: 07/26/14 Status: Completedmorphine 15 mg oral tablet 1 tab(s), Oral, QID, PRN for pain, # 120 tab(s), 0 Refill(s), Start Date: 9:56:38 ENGINE WIPER Start Date: 07/27/14 Stop Date: 10/05/14 Status: Discontinuedmorphine 15 mg oral tablet 1 tab(s), Oral, q6hr interval, PRN for pain, X 30 days, # 120 tab(s), 0 Refill(s ), Start Date: 07/27/15 8:27:07 ENGINE WIPER Start Date: 07/27/15 Stop Date: 08/25/15 Status: Completedmorphine 15 mg oral tablet 1 tab(s), Oral, QID, PRN for pain, 0 Refill(s) Start Date: 10/05/13 Stop Date: 11/02/13 Status: Discontinuedmorphine 15 mg oral tablet 1 tab(s), Oral, q6hr interval, PRN for pain, X 30 days, # 120 tab(s), 0 Refill(s ), Start Date: 06/28/15 10:40:16 ENGINE WIPER Start Date: 06/28/15 Stop Date: 07/27/15 Status: Completedmorphine 15 mg oral tablet 1 tab(s), Oral, q6hr interval, PRN for pain, # 120 tab(s), 0 Refill(s), Start Date: 05/28/16 10:38:28 ENGINE WIPER Start Date: 05/28/16 Stop Date: 06/24/16 Status: CompletedMS Contin 100mg/12 hrs, Oral, q12hr interval, 0 Refill(s), Start Date: 02/28/16 9:20:00 CDT Start Date: 02/28/16 Stop Date: 02/28/16 Status: DiscontinuedMS Contin 100 mg/12 hours oral tablet, extended release 1 tab(s), Oral, q12hr, X 30 days, # 60 tab(s), 0 Refill(s), Start Date: 15:23:23 CDT Start Date: 04/03/15 Stop Date: 05/03/15 Status: CompletedMS Contin 100 mg/12 hours oral tablet, extended release 1 tab(s), Oral, q12hr, # 60 tab(s), 0 Refill(s) Start Date: 01/27/14 Stop Date: 02/23/14 Status: DiscontinuedMS Contin 100 mg/12 hours oral tablet, extended release 1 tab(s), Oral, q12hr, X 30 days, # 60 tab(s), 0 Refill(s), Start Date: 12:33:00 CDT Start Date: 09/28/15 Stop Date: 10/28/15 Status: CompletedMS Contin 100 mg/12 hours oral tablet, extended release 1 tab(s), Oral, q12hr, X 30 days, # 60 tab(s), 0 Refill(s), Start Date: 15:13:00 CDT Start Date: 01/08/15 Stop Date: 04/03/15 Status: CompletedMS Contin 100 mg/12 hours oral tablet, extended release 1 tab(s), Oral, q12hr, May take 1 extra tablet daily prn severe pain, X 30 days , # 75 tab(s), 0 Refill(s), Start Date: 07/26/14 15:04:24 ENGINE WIPER Special Instructions: May take 1 extra tablet daily prn severe pain Start Date: 07/26/14 Stop Date: 07/27/14 Status: CompletedMS Contin 100 mg/12 hours oral tablet, extended release 1 tab(s), Oral, q12hr, # 60 tab(s), 0 Refill(s), Start Date: 01/29/16 8:37:46 CDT Start Date: 01/29/16 Stop Date: 05/28/16 Status: CompletedMS Contin 100 mg/12 hours oral tablet, extended release 1 tab(s), Oral, q12hr, X 30 days, # 60 tab(s), 0 Refill(s), Start Date: 9:10:22 ENGINE WIPER Start Date: 06/04/15 Stop Date: 06/28/15 Status: CompletedMS Contin 100 mg/12 hours oral tablet, extended release 1 tab(s), Oral, q12hr, # 60 tab(s), 0 Refill(s), Start Date: 10/31/14 16:52:00 CDT Start Date: 10/31/14 Stop Date: 12/11/14 Status: CompletedMS Contin 100 mg/12 hours oral tablet, extended release 1 tab(s), Oral, q12hr, PRN pain, # 60 tab(s), 0 Refill(s) Start Date: 11/09/13 Stop Date: 11/29/13 Status: CompletedMS Contin 100 mg/12 hours oral tablet, extended release 1 tab(s), Oral, q12hr, DO NOT REFILL UNTIL 08/25/15, X 30 days, # 60 tab(s), 0 Refill(s), Start Date: 08/25/15 14:23:00 ENGINE WIPER Special Instructions: DO NOT REFILL UNTIL 08/25/15 Start Date: 08/25/15 Stop Date: 09/25/15 Status: CompletedMS Contin 100 mg/12 hours oral tablet, extended release 1 tab(s), Oral, q12hr, X 30 days, # 60 tab(s), 0 Refill(s), Start Date: 17:18:00 CDT Start Date: 10/28/15 Stop Date: 11/27/15 Status: CompletedMS Contin 100 mg/12 hours oral tablet, extended release 1 tab(s), Oral, q12hr, DO NOT REFILL UNTIL 11/28/15, X 30 days, # 60 tab(s), 0 Refill(s), Start Date: 11/28/15 17:23:00 CDT Special Instructions: DO NOT REFILL UNTIL 11/28/15 Start Date: 11/28/15 Stop Date: 12/27/15 Status: CompletedMS Contin 100 mg/12 hours oral tablet, extended release 1 tab(s), Oral, q12hr, PRN pain, # 60 tab(s), 0 Refill(s) Start Date: 10/12/13 Stop Date: 11/02/13 Status: CompletedMS Contin 100 mg/12 hours oral tablet, extended release 1 tab(s), Oral, q12hr, X 30 days, # 60 tab(s), 0 Refill(s), Start Date: 13:25:00 ENGINE WIPER Start Date: 05/04/15 Stop Date: 06/04/15 Status: CompletedMS Contin 100 mg/12 hours oral tablet, extended release 1 tab(s), Oral, q12hr, # 60 tab(s), 0 Refill(s) Start Date: 01/20/14 Stop Date: 01/26/14 Status: CompletedMS Contin 100 mg/12 hours oral tablet, extended release 1 tab(s), Oral, q12hr, PRN pain, 0 Refill(s) Start Date: 10/05/13 Stop Date: 10/11/13 Status: DiscontinuedMS Contin 100 mg/12 hours oral tablet, extended release 1 tab(s), Oral, q12hr, # 60 tab(s), 0 Refill(s) Start Date: 01/03/14 Stop Date: 01/20/14 Status: CompletedMS Contin 100 mg/12 hours oral tablet, extended release 1 tab(s), Oral, q12hr, 0 Refill(s) Start Date: 01/03/14 Stop Date: 01/03/14 Status: DiscontinuedMS Contin 100 mg/12 hours oral tablet, extended release 1 tab(s), Oral, q12hr, May take 1 extra tablet daily prn severe pain, X 30 days , # 75 tab(s), 0 Refill(s), Start Date: 03/24/14 12:43:58 CDT Special Instructions: May take 1 extra tablet daily prn severe pain Start Date: 03/24/14 Stop Date: 04/24/14 Status: CompletedMS Contin 100 mg/12 hours oral tablet, extended release 1 tab(s), Oral, q12hr, X 30 days, # 60 tab(s), 0 Refill(s), Start Date: 15:27:00 CDT Start Date: 12/27/15 Stop Date: 01/29/16 Status: CompletedMS Contin 100 mg/12 hours oral tablet, extended release 1 tab(s), Oral, q12hr, PRN pain, # 60 tab(s), 0 Refill(s) Start Date: 10/11/13 Stop Date: 10/12/13 Status: CompletedMS Contin 100 mg/12 hours oral tablet, extended release 1 tab(s), Oral, q12hr, May take 1 extra tablet daily prn severe pain, X 30 days , # 75 tab(s), 0 Refill(s) Special Instructions: May take 1 extra tablet daily prn severe pain Start Date: 02/23/14 Stop Date: 03/24/14 Status: CompletedMS Contin 100 mg/12 hours oral tablet, extended release 1 tab(s), Oral, q12hr, X 30 days, # 60 tab(s), 0 Refill(s), Start Date: 8:49:18 CDT Start Date: 12/11/14 Stop Date: 01/08/15 Status: CompletedMS Contin 100 mg/12 hours oral tablet, extended release 1 tab(s), Oral, q12hr, May take 1 extra tablet daily prn severe pain, # 75 tab(s ), 0 Refill(s), Start Date: 07/27/14 9:57:00 ENGINE WIPER Special Instructions: May take 1 extra tablet daily prn severe pain Start Date: 07/27/14 Stop Date: 10/05/14 Status: DiscontinuedMS Contin 100 mg/12 hours oral tablet, extended release 1 tab(s), Oral, q12hr, May take 1 extra tablet daily prn severe pain, X 30 days , # 75 tab(s), 0 Refill(s), Start Date: 06/26/14 11:46:00 ENGINE WIPER Special Instructions: May take 1 extra tablet daily prn severe pain Start Date: 06/26/14 Stop Date: 07/26/14 Status: CompletedMS Contin 100 mg/12 hours oral tablet, extended release 1 tab(s), Oral, q12hr, PRN pain, X 30 days, # 60 tab(s), 0 Refill(s) Start Date: 11/29/13 Stop Date: 12/29/13 Status: CompletedMS Contin 100 mg/12 hours oral tablet, extended release 1 tab(s), Oral, q12hr, May take 1 extra tablet daily prn severe pain, X 30 days , # 75 tab(s), 0 Refill(s), Start Date: 05/26/14 15:39:00 ENGINE WIPER Special Instructions: May take 1 extra tablet daily prn severe pain Start Date: 05/26/14 Stop Date: 06/26/14 Status: CompletedMS Contin 100 mg/12 hours oral tablet, extended release 1 tab(s), Oral, q12hr, X 30 days, # 60 tab(s), 0 Refill(s), Start Date: 8:28:31 ENGINE WIPER Start Date: 07/27/15 Stop Date: 08/25/15 Status: CompletedMS Contin 100 mg/12 hours oral tablet, extended release 1 tab(s), Oral, q12hr, X 30 days, # 60 tab(s), 0 Refill(s), Start Date: 10:40:40 ENGINE WIPER Start Date: 06/28/15 Stop Date: 07/27/15 Status: CompletedMS Contin 100 mg/12 hours oral tablet, extended release 1 tab(s), Oral, q12hr, May take 1 extra tablet daily prn severe pain, X 30 days , # 75 tab(s), 0 Refill(s), Start Date: 04/24/14 14:26:44 CDT Special Instructions: May take 1 extra tablet daily prn severe pain Start Date: 04/24/14 Stop Date: 05/24/14 Status: Completedmultivitamin 1 tab(s), Oral, Daily, 0 Refill(s), Start Date: 08/22/14 15:23:00 ENGINE WIPER Start Date: 08/22/14 Stop Date: 12/11/14 Status: Discontinuednabumetone 500 mg oral tablet 2 tab(s), Oral, BID, # 120 tab(s), 11 Refill(s) Start Date: 01/20/14 Stop Date: 10/05/14 Status: Discontinuednabumetone 500 mg oral tablet 2 tab(s), Oral, BID, # 120 tab(s), 11 Refill(s), Pharmacy: [facility] Start Date: 11/29/13 Stop Date: 01/20/14 Status: Discontinuednabumetone 500 mg oral tablet 2 tab(s), Oral, BID, # 120 tab(s), 0 Refill(s), Pharmacy: [facility] Start Date: 10/19/13 Stop Date: 11/29/13 Status: Discontinuednabumetone 500 mg oral tablet 2 tab(s), Oral, BID Start Date: 10/05/13 Stop Date: 10/19/13 Status: Discontinuednystatin 100,000 units/g topical powder 1 morales, Topical, BID, PRN skin care, 0 Refill(s), Start Date: 10/05/14 13:46:00 CDT Start Date: 10/05/14 Stop Date: 10/27/14 Status: Discontinuednystatin 100,000 units/g topical powder Topical, BID, PRN rash, 0 Refill(s), Start Date: 10/27/14 10:52:00 CDT Start Date: 10/27/14 Status: Orderednystatin 100,000 units/g topical powder 1 morales, Topical, BID, PRN rash, # 30 gm, 0 Refill(s), Start Date: 10/12/14 14:36: 00 CDT Start Date: 10/12/14 Stop Date: 10/27/14 Status: Discontinuedomeprazole 20 mg oral delayed release capsule 1 cap(s), Oral, BID, # 60 cap(s), 11 Refill(s), Pharmacy: [facility] Start Date: 03/02/14 Stop Date: 10/12/14 Status: Completedomeprazole 20 mg oral delayed release capsule 1 cap(s), Oral, BID, X 30 days, # 60 cap(s), 11 Refill(s) Start Date: 01/20/14 Stop Date: 03/02/14 Status: Completedomeprazole 20 mg oral delayed release capsule 1 cap(s), Oral, BID, # 30 cap(s), 3 Refill(s), Pharmacy: [facility] Start Date: 11/02/13 Stop Date: 11/15/13 Status: Discontinuedomeprazole 20 mg oral delayed release capsule 1 cap(s), Oral, BID, # 60 cap(s), 3 Refill(s), Pharmacy: [facility] Start Date: 11/15/13 Stop Date: 01/20/14 Status: DiscontinuedOxyCONTIN 20 mg oral tablet, extended release 1 tab(s), Oral, q12hr, # 14 tab(s), 0 Refill(s), Start Date: 08/30/14 8:21:00 ENGINE WIPER, other reason (Rx) Start Date: 08/30/14 Stop Date: 10/05/14 Status: DiscontinuedPARoxetine 40 mg oral tablet 1 tab(s), Oral, HS, PRN depression Start Date: 10/05/13 Stop Date: 10/17/13 Status: DiscontinuedPaxil 20 mg oral tablet 1 tab(s), Oral, Daily, # 30 tab(s), 11 Refill(s) Start Date: 01/20/14 Stop Date: 10/05/14 Status: DiscontinuedPaxil 20 mg oral tablet 1 tab(s), Oral, Daily, # 30 tab(s), 0 Refill(s), Pharmacy: [facility] Start Date: 11/02/13 Stop Date: 11/29/13 Status: DiscontinuedPaxil 40 mg oral tablet 1 tab(s), Oral, Daily, # 30 tab(s), 11 Refill(s), Pharmacy: [facility] Start Date: 11/29/13 Stop Date: 01/20/14 Status: DiscontinuedPennsaid 2% topical solution 2 pump, Topical, BID, , # 112 gm, 3 Refill(s), Start Date: 02/26/16 14:41:00 CDT, Pharmacy: [facility] Special Instructions: [phone] Start Date: 02/26/16 Status: OrderedPercocet 5/325 oral tablet 1 tab(s), Oral, q4hr, # 60 tab(s), 0 Refill(s), Start Date: 10/27/14 8:04:00 CDT , other reason (Rx) Start Date: 10/27/14 Stop Date: 05/18/15 Status: DiscontinuedPercocet 5/325 oral tablet 2 tab(s), Oral, q4hr, PRN pain moderate 4-7, # 50 tab(s), 0 Refill(s), Start Date: 10/05/14 13:55:21 CDT, Pharmacy: [facility] [place] [place] Start Date: 10/05/14 Stop Date: 10/11/14 Status: CompletedPercocet 5/325 oral tablet 1 tab(s), Oral, q4hr, # 60 tab(s), 0 Refill(s), Start Date: 08/30/14 8:21:00 ENGINE WIPER , other reason (Rx) Start Date: 08/30/14 Stop Date: 10/05/14 Status: DiscontinuedPercocet 5/325 oral tablet See Instructions, PRN for pain, 1 tab(s) Oral q4-6hr prn pain, # 60 tab(s), 0 Refill(s), Start Date: 09/12/14 15:28:00 CDT, called to pharmacy (Rx) Special Instructions: 1 tab(s) Oral q4-6hr prn pain Start Date: 09/12/14 Stop Date: 10/05/14 Status: DiscontinuedPercocet 5/325 oral tablet 2 tab(s), Oral, q4hr, PRN pain moderate 4-7, # 50 tab(s), 0 Refill(s), Start Date: 10/11/14 14:47:27 CDT Start Date: 10/11/14 Stop Date: 05/18/15 Status: DiscontinuedPercocet 5/325 oral tablet 2 tab(s), Oral, q4hr, PRN pain moderate 4-7, # 24 tab(s), 0 Refill(s), Start Date: 09/22/14 16:44:00 CDT, Pharmacy: [facility] Start Date: 09/22/14 Stop Date: 10/02/14 Status: DiscontinuedPercocet 5/325 oral tablet 2 tab(s), Oral, q4hr, PRN pain moderate 4-7, # 30 tab(s), 0 Refill(s), Start Date: 10/02/14 10:55:14 CDT, Pharmacy: [facility] Start Date: 10/02/14 Stop Date: 10/05/14 Status: DiscontinuedPlaquenil Sulfate 200 mg oral tablet 1 tab(s), Oral, BID, # 60 tab(s), 11 Refill(s), Pharmacy: [facility] Start Date: 03/02/14 Stop Date: 10/05/14 Status: DiscontinuedPlaquenil Sulfate 200 mg oral tablet 1 tab(s), Oral, BID, # 180 tab(s), 1 Refill(s), Start Date: 05/02/16 13:14:03 CDT, Pharmacy: [place], [place] Start Date: 05/02/16 Status: OrderedPlaquenil Sulfate 200 mg oral tablet 1 tab(s), Oral, BID, # 60 tab(s), 11 Refill(s) Start Date: 01/20/14 Stop Date: 03/02/14 Status: CompletedPlaquenil Sulfate 200 mg oral tablet 1 tab(s), Oral, BID, # 60 tab(s), 11 Refill(s), Start Date: 10/05/14 14:01:26 CDT, Pharmacy: [place], [place] Start Date: 10/05/14 Stop Date: 12/11/14 Status: CompletedPlaquenil Sulfate 200 mg oral tablet 1 tab(s), Oral, BID, # 180 tab(s), 3 Refill(s), Start Date: 02/19/16 15:42:47 CDT, Pharmacy: [place], [place] Start Date: 02/19/16 Stop Date: 05/02/16 Status: CompletedPlaquenil Sulfate 200 mg oral tablet 1 tab(s), Oral, BID, # 60 tab(s), 11 Refill(s), Start Date: 12/11/14 9:04:43 CDT , Pharmacy: [place], [place] Start Date: 12/11/14 Stop Date: 05/18/15 Status: DiscontinuedPlaquenil Sulfate 200 mg oral tablet 1 tab(s), Oral, BID, # 60 tab(s), 11 Refill(s), Start Date: 05/18/15 12:48:13 ENGINE WIPER, Pharmacy: [place], [place] Start Date: 05/18/15 Stop Date: 02/19/16 Status: CompletedPlaquenil Sulfate 200 mg oral tablet 1 tab(s), Oral, BID Start Date: 10/05/13 Stop Date: 01/20/14 Status: DiscontinuedPost op hinged knee brace Post op hinged knee brace 1 EA, N/A, ONETIME, Length: 99 Dx: R TKA infection, # 1 EA, 0 Refill(s), 01/04/15 10:48:00 CDT Special Instructions: Length: 99 Dx: R TKA infection Start Date: 01/04/15 Status: Orderedpotassium chloride 10 mEq oral tablet, extended release 2 tab(s), Oral, Daily, # 30 tab(s), 0 Refill(s), Start Date: 10/05/14 13:53:00 CDT, Pharmacy: [place], [place] Start Date: 10/05/14 Stop Date: 12/11/14 Status: Completedpotassium chloride 10 mEq oral tablet, extended release 0.5 tab(s), Oral, TID, # 45 tab(s), 11 Refill(s) Start Date: 01/20/14 Stop Date: 03/02/14 Status: Completedpotassium chloride 10 mEq oral tablet, extended release 0.5 tab(s), Oral, TID, # 45 tab(s), 11 Refill(s), Pharmacy: [facility] Special Instructions: order discontinued and new dosage order entered on 09/15/14 Start Date: 03/02/14 Stop Date: 09/27/14 Status: Discontinuedpotassium chloride 10 mEq oral tablet, extended release 2 tab(s), Oral, Daily, # 180 tab(s), 3 Refill(s), Start Date: 02/19/16 15:43:02 CDT, Pharmacy: [place], [place] Start Date: 02/19/16 Status: Orderedpotassium chloride 10 mEq oral tablet, extended release 2 tab(s), Oral, Daily, # 60 tab(s), 11 Refill(s), Start Date: 12/11/14 9:05:31 CDT, Pharmacy: [place], [place] Start Date: 12/11/14 Stop Date: 05/18/15 Status: Discontinuedpotassium chloride 10 mEq oral tablet, extended release 2 tab(s), Oral, Daily, X 30 days, # 60 tab(s), 11 Refill(s), Start Date: 12:49:22 [employer], Pharmacy: [place], [place] Start Date: 05/18/15 Stop Date: 02/19/16 Status: Completedpotassium chloride 10 mEq oral tablet, extended release 0.5 tab(s), Oral, TID Start Date: 10/05/13 Stop Date: 01/20/14 Status: Discontinuedpotassium chloride extended release 10 mEq, Oral, Daily, 0 Refill(s), Start Date: 09/15/14 11:45:00 CDT Start Date: 09/15/14 Stop Date: 10/05/14 Status: Discontinuedprochlorperazine 10 mg oral tablet 1 tab(s), Oral, q6hr, # 30 tab(s), 2 Refill(s), Pharmacy: [facility] Start Date: 11/14/13 Stop Date: 11/15/13 Status: Completedprochlorperazine 10 mg oral tablet 1 tab(s), Oral, q6hr, # 30 tab(s), 2 Refill(s), Pharmacy: [facility] Start Date: 11/15/13 Stop Date: 08/22/14 Status: Completedrifampin 300 mg oral capsule 2 cap(s), Oral, Daily, # 14 cap(s), 1 Refill(s), Start Date: 12/07/14 14:22:00 CDT, Pharmacy: [place], [place] Start Date: 12/07/14 Stop Date: 04/13/15 Status: DiscontinuedSenokot S 50 mg-8.6 mg oral tablet 3 tab(s), Oral, BID, PRN constipation, # 540 tab(s), 3 Refill(s), Start Date: 15:42:37 CDT, Pharmacy: [place], [place] Start Date: 02/19/16 Status: OrderedSenokot S 50 mg-8.6 mg oral tablet 3 tab(s), Oral, BID, PRN constipation, # 30 tab(s), 0 Refill(s), Start Date: 15:13:00 CDT, Pharmacy: [facility] Start Date: 10/19/13 Stop Date: 12/11/14 Status: CompletedSenokot S 50 mg-8.6 mg oral tablet 1 tab(s), Oral, Daily Start Date: 10/05/13 Stop Date: 10/19/13 Status: DiscontinuedSenokot S 50 mg-8.6 mg oral tablet 3 tab(s), Oral, BID, PRN constipation, X 30 days, # 180 tab(s), 11 Refill(s), Start Date: 12/11/14 14:42:17 CDT, Pharmacy: [place], [place] Start Date: 12/11/14 Stop Date: 02/19/16 Status: OuwrdzecaCwy-O-Xurq Womens Formula tab(s), Oral, Daily, 0 Refill(s), Start Date: 12/11/14 14:44:00 CDT Start Date: 12/11/14 Stop Date: 12/11/14 Status: TxgspihsrwusSgd-X-Pzty Womens Formula oral tablet 1 tab(s), Oral, Daily, X 30 days, # 30 tab(s), 11 Refill(s), Start Date: 14:45:00 CDT, Pharmacy: [place] Start Date: 12/11/14 Stop Date: 10/09/15 Status: SivlxigvpBun-W-Njuq Womens Formula oral tablet 1 tab(s), Oral, Daily, # 30 tab(s), 11 Refill(s), Start Date: 10/09/15 14:05:34 CDT, Pharmacy: [place] Start Date: 10/09/15 Stop Date: 10/03/16 Status: OrderedTagamet HB 200 mg oral tablet See Instructions, 4 tab(s) Oral 2-3 times a day as needed Special Instructions: 4 tab(s) Oral 2-3 times a day as needed Start Date: 10/05/13 Stop Date: 11/29/13 Status: Discontinuedtorsemide 100 mg oral tablet 1 tab(s), Oral, TID, # 270 tab(s), 1 Refill(s), Start Date: 05/02/16 13:13:46 CDT, Pharmacy: [place] Start Date: 05/02/16 Status: Orderedtorsemide 100 mg oral tablet 1 tab(s), Oral, BID, # 60 tab(s), 5 Refill(s), Start Date: 04/26/14 15:34:18 CDT , Pharmacy: [place] Start Date: 04/26/14 Stop Date: 06/20/14 Status: Completedtorsemide 100 mg oral tablet 1 tab(s), Oral, BID, # 60 tab(s), 11 Refill(s) Start Date: 01/20/14 Stop Date: 03/30/14 Status: Discontinuedtorsemide 100 mg oral tablet 1 tab(s), Oral, TID, # 90 tab(s), 11 Refill(s), Start Date: 04/23/15 11:53:15 CDT, Pharmacy: [place] Start Date: 04/23/15 Stop Date: 05/18/15 Status: Discontinuedtorsemide 100 mg oral tablet 1 tab(s), Oral, BID, # 60 tab(s), 11 Refill(s), Start Date: 04/20/15 11:29:52 CDT, Pharmacy: [place] Start Date: 04/20/15 Stop Date: 04/23/15 Status: Discontinuedtorsemide 100 mg oral tablet 1 tab(s), Oral, BID, # 60 tab(s), 5 Refill(s), Start Date: 06/20/14 14:56:49 ENGINE WIPER , Pharmacy: [facility] [place], [place] Start Date: 06/20/14 Stop Date: 08/21/14 Status: Completedtorsemide 100 mg oral tablet 1 tab(s), Oral, TID, # 270 tab(s), 3 Refill(s), Start Date: 02/19/16 15:43:17 CDT, Pharmacy: [facility] [place], [place] Start Date: 02/19/16 Stop Date: 05/02/16 Status: Completedtorsemide 100 mg oral tablet 1 tab(s), Oral, BID, X 30 days, # 60 tab(s), 11 Refill(s), Start Date: 12/11/14 9:06:24 CDT, Pharmacy: [place] Start Date: 12/11/14 Stop Date: 04/20/15 Status: Completedtorsemide 100 mg oral tablet 1 tab(s), Oral, BID, # 60 tab(s), 5 Refill(s), Start Date: 03/30/14 15:46:01 CDT , Pharmacy: [place] Start Date: 03/30/14 Stop Date: 04/26/14 Status: Completedtorsemide 100 mg oral tablet 1 tab(s), Oral, BID, # 60 tab(s), 11 Refill(s), Start Date: 10/05/14 13:56:28 CDT, Pharmacy: [place] Start Date: 10/05/14 Stop Date: 12/11/14 Status: Completedtorsemide 100 mg oral tablet 1 tab(s), Oral, BID, # 60 tab(s), 11 Refill(s), Start Date: 08/21/14 9:37:44 ENGINE WIPER , Pharmacy: [place] Start Date: 08/21/14 Stop Date: 10/05/14 Status: Discontinuedtorsemide 100 mg oral tablet 1 tab(s), Oral, TID, X 30 days, # 90 tab(s), 11 Refill(s), Start Date: 05/18/15 12:50:29 ENGINE WIPER, Pharmacy: [place] Start Date: 05/18/15 Stop Date: 02/19/16 Status: Completedtorsemide 100 mg oral tablet 1 tab(s), Oral, BID Start Date: 10/05/13 Stop Date: 01/20/14 Status: DiscontinuedtraMADol 50 mg oral tablet 2 tab(s), Oral, q4hr, PRN for pain, max 6/24hrs Special Instructions: max 6/24hrs Start Date: 10/05/13 Stop Date: 01/20/14 Status: DiscontinuedtraZODone 50 mg oral tablet See Instructions, PRN sleep, 1-2 tab(s) Oral HS, # 30 tab(s), 11 Refill(s), Start Date: 01/20/14 16:29:02 CDT Special Instructions: 1-2 tab(s) Oral HS Start Date: 01/20/14 Stop Date: 12/11/14 Status: CompletedtraZODone 50 mg oral tablet See Instructions, PRN sleep, 1-2 tab(s) Oral HS, # 30 tab(s), 11 Refill(s), Pharmacy: [facility] Special Instructions: 1-2 tab(s) Oral HS Start Date: 11/29/13 Stop Date: 01/20/14 Status: DiscontinuedtraZODone 50 mg oral tablet See Instructions, PRN sleep, 1-2 tab(s) Oral HS, # 30 tab(s), 11 Refill(s), Start Date: 01/29/16 10:36:37 CDT, Pharmacy: [place] Special Instructions: 1-2 tab(s) Oral HS Start Date: 01/29/16 Stop Date: 02/19/16 Status: CompletedtraZODone 50 mg oral tablet See Instructions, PRN sleep, 1-2 tab(s) Oral HS, # 120 tab(s), 3 Refill(s), Start Date: 02/19/16 15:43:24 CDT, Pharmacy: [place] Special Instructions: 1-2 tab(s) Oral HS Start Date: 02/19/16 Stop Date: 06/24/16 Status: CompletedtraZODone 50 mg oral tablet See Instructions, PRN sleep, 1-2 tab(s) Oral HS, # 30 tab(s), 11 Refill(s), Start Date: 12/11/14 9:07:21 CDT, Pharmacy: [place] Special Instructions: 1-2 tab(s) Oral HS Start Date: 12/11/14 Stop Date: 05/18/15 Status: DiscontinuedtraZODone 50 mg oral tablet See Instructions, PRN sleep, 1-2 tab(s) Oral HS, # 30 tab(s), 11 Refill(s), Start Date: 05/18/15 12:51:02 ENGINE WIPER, Pharmacy: [place] Special Instructions: 1-2 tab(s) Oral HS Start Date: 05/18/15 Stop Date: 01/29/16 Status: CompletedtraZODone 50 mg oral tablet See Instructions, PRN sleep, 1-2 tab(s) Oral HS Special Instructions: 1-2 tab(s) Oral HS Start Date: 10/05/13 Stop Date: 11/29/13 Status: DiscontinuedTylenol 325 mg, Oral, q4hr, PRN pain mild 1-3, 0 Refill(s), Start Date: 10/05/14 13:47: 00 CDT Start Date: 10/05/14 Stop Date: 10/12/14 Status: Completedwarfarin 5 mg oral tablet See Instructions, Take 1 tab orally at 6pm evening before surgery, # 1 tab(s), 0 Refill(s), Start Date: 10/06/14 6:56:00 CDT, Pharmacy: [place] Special Instructions: Take 1 tab orally at 6pm evening before surgery Start Date: 10/06/14 Stop Date: 10/27/14 Status: DiscontinuedZantac 150 150 mg, Oral, BID, PRN reflux, 0 Refill(s), Start Date: 10/12/14 14:36:00 CDT Start Date: 10/12/14 Stop Date: 12/11/14 Status: CompletedZantac 150 oral tablet 1 tab(s), Oral, BID, # 60 tab(s), 0 Refill(s), Start Date: 10/31/14 16:52:00 CDT Start Date: 10/31/14 Stop Date: 12/11/14 Status: CompletedZantac 150 oral tablet 1 tab(s), Oral, BID, # 180 tab(s), 3 Refill(s), Start Date: 02/19/16 15:43:10 CDT, Pharmacy: [place] Start Date: 02/19/16 Status: OrderedZantac 150 oral tablet 1 tab(s), Oral, BID, X 30 days, # 60 tab(s), 11 Refill(s), Start Date: 05/18/15 12:49:48 ENGINE WIPER, Pharmacy: [place] Start Date: 05/18/15 Stop Date: 02/19/16 Status: CompletedZantac 150 oral tablet 1 tab(s), Oral, BID, # 60 tab(s), 11 Refill(s), Start Date: 12/11/14 14:43:08 CDT, Pharmacy: [place] Start Date: 12/11/14 Stop Date: 05/18/15 Status: DiscontinuedZofran 8 mg oral tablet 1 tab(s), Oral, q8hr, PRN as needed for nausea/vomiting, # 90 tab(s), 0 Refill(s ), Start Date: 12/15/14 17:47:00 CDT, Pharmacy: [place] Start Date: 12/15/14 Status: OrderedZofran 8 mg oral tablet 1 tab(s), Oral, q8hr, PRN as needed for nausea/vomiting, 0 Refill(s), Start Date : 12/15/14 17:46:00 CDT Start Date: 12/15/14 Stop Date: 12/15/14 Status: DiscontinuedZofran ODT 4 mg oral tablet, disintegrating 4 mg, Oral, q4hr, PRN nausea/vomiting, # 12 tab(s), 0 Refill(s), Start Date: 03/13 13:53:00 CDT, Pharmacy: [place] Start Date: 10/05/14 Stop Date: 12/11/14 Status: CompletedZofran ODT 4 mg oral tablet, disintegrating 4 mg, Oral, q4hr, PRN nausea/vomiting, # 12 tab(s), 1 Refill(s), Start Date: 9:08:08 CDT, Pharmacy: [place] Start Date: 12/11/14 Status: Ordered Results No data available for this section Immunizations Vaccine Date Refusal Reason influenza virus vaccine, inactivated1 11/12/09 pneumococcal 13-valent conjugate vaccine 05/18/15 pneumococcal 23-polyvalent vaccine 06/29/07 1Result Comment: [10/17/2013] Swine Flu Vaccine (H1N1 Injection) Procedures Procedure Date Related Diagnosis Body Site Placement Antibiotic Beads (Right, Knee R)1 10/23/14 Aspiration (Right, Knee R)2 08/23/14 Irrigation And Drainage Knee (Right, Knee R)3 08/23/14 Epidural Steroid Injection - Lumbar4 01/16/14 Epidural Steroid Injection - Lumbar5 01/11/14 Decompression L5/S1 2013 H/O: surgery left Shoulder 2008 Cholecystectomy 2007 Total knee arthroplasty right 2006 H/O: surgery back 2004 H/O: surgery shoulder Left 2005 Tubal ligation 1979 Tonsillectomy 1975 Carpal tunnel release6 Colonoscopy Hemilaminectomy7 Jaw8 1auto-populated from documented surgical [id number] from documented surgical [id number] from documented surgical [id number] from documented surgical [id number] from documented surgical [id number] SURGERY Social History No data available for this section Assessment and Plan No data available for this section
[2016-10-08 19:49] LABS: Hemoglobin 12.3 gm/dL (12.5-16.0); Mean Cell Volume 90.3 fl (78-100); Mean Corpuscular Hemoglobin 28.5 pg (27-31); Mean Corpuscular Hgb Conc 31.5 g/dl (32-36); Mean Platelet Volume 9.3 fl (6.0-9.5); Neutrophil # 5.5 K/mm3 (1.3-6.0); Neutrophil % 65.1 % (42-75.0); Platelet Count 280 K/mm3 (150-450); Red Blood Count 4.32 M/mm3 (4.2-5.4); Red Cell Distribution Width 13.8 % (11.5-14.0); White Blood Count 8.5 K/mm3 (4.0-10.5)
--- NOTE | 2016-10-08 19:52 | ERNOTE ---
Lower Extremity HPI - Narrative Date of Service: 10/08/16 - General Lower Extremities Pain: leg: left Time Seen by Provider: 10/08/16 19:10 Source: patient Exam Limitations: no limitations - Immun/Allergies/Home Medications Immunizations: IMMUNIZATION HX Immunizations Up to Date Yes History of Influenza Vaccine No Hx Pneumococcal Vaccination Yes Allergies/Adverse Reactions: Allergies Allergy/AdvReac Type Severity Reaction Status Date / Time pregabalin [From Lyrica] Allergy Verified 10/08/16 19:02 celecoxib [From Celebrex] AdvReac Severe Headache Verified 10/08/16 19:01 duloxetine HCl AdvReac Severe Nausea Verified 10/08/16 19:01 [From Cymbalta] gabapentin AdvReac Severe Other Verified 10/08/16 19:01 Home Medications: HOME MEDICATIONS ALPRAZolam [Xanax] 1 mg PO QID PRN 10/08/16 [Last Taken Unknown] Albuterol Sulfate [Ventolin Hfa] 2 puff IH QID PRN 10/08/16 [Last Taken Unknown] Amiloride HCl 10 mg PO DAILY 10/08/16 [Last Taken Unknown] Bupropion HCl [Wellbutrin Sr] 100 mg PO DAILY 10/08/16 [Last Taken Unknown] Cephalexin 500 mg PO QID 10/08/16 [Last Taken Unknown] Cholecalciferol [Vitamin D] 1,000 unit PO DAILY 10/08/16 [Last Taken Unknown] Cyclobenzaprine HCl 10 mg PO TID PRN 10/08/16 [Last Taken Unknown] Morphine Sulfate [Ms Contin] 60 mg PO BID 10/08/16 [Last Taken Unknown] Multivitamin [Multivitamins] 1 each PO DAILY 10/08/16 [Last Taken Unknown] Potassium Chloride [Klor-Con Sprinkle] 10 meq PO DAILY 10/08/16 [Last Taken Unknown] Torsemide 100 mg PO TID 10/08/16 [Last Taken Unknown] - History of Present Illness Narrative: Pt. comes in with 2 day hx of BLE swelling L greater than R. Pt. also states that she has had a dry intermittent cough for 3 months and intermittent posterior leg pain for a month. Pt. denies any heart disease, DM, SOB or CP. Pt. has lupus and occasionally has pain and cramping with this but states that this is different. Pt. denies any prehospital treatment alleviating factors but states that keeping her feet down exacerbates the pain. Review of Systems - Review of Systems Constitutional: Present: no symptoms reported. Absent: recent illness, fever, chills, weakness, fatigue EYE: Present: no symptoms reported ENT: Present: no symptoms reported. Absent: nose pain, nose congestion, nasal drainage, sore throat, throat swelling Respiratory: Present: cough. Absent: shortness of breath, wheezing Cardiology: Present: edema - BLE L greater than R, claudication. Absent: chest pain, palpitations, syncope Gastrointestinal/Abdominal: Present: no symptoms reported. Absent: nausea, vomiting, diarrhea Genitourinary: Present: no symptoms reported Musculoskeletal: Present: muscle pain - LLE posterior. Absent: back pain, joint pain Skin: Present: no symptoms reported. Absent: rash, change in color, change in hair/nails Neurological: Present: no symptoms reported. Absent: headache, dizziness/light- headedness, numbness, tingling All Other Systems: All systems neg except as marked - Patient's Past Medical History Patient History - Medical: Anxiety, Arthritis, Depression, Fibromyalgia, Obesity , Other - lupus Patient History - Cardiac/Respiratory: No pertinent hx Patient History - Cancer: No Hx of Cancer Patient History - Surgical Procedures: Cholecystectomy Patient History - Other: None - Social History Living Situations: home Smoking Status: Never smoker Alcohol Use: none Drug Use: none - Immunizations Immunizations Up to Date: Yes Hx Pneumococcal Vaccination: Yes History of Influenza Vaccine: No Physical Exam - Physical Exam General Appearance: Present: wd/wn, alert, no apparent distress Eye Exam: Normal inspection: bilateral, PERRL: bilateral, EOMI: bilateral Ears, Nose, Throat: Present: normal ENT inspection, normal pharynx Neck: Present: normal inspection, nontender. Absent: lymphadenopathy (R), lymphadenopathy (L) Respiratory: Present: no respiratory distress, no accessory muscle use, chest nontender, crackles - fine BLL RML Cardiovascular/Chest: Present: regular rate, rhythm, no murmur, normal peripheral pulses. Absent: gallop/S3, gallop/S4, systolic murmur, diastolic murmur, friction rub Gastrointestinal/Abdominal: Present: normal bowel sounds, nontender, nondistended, soft, no organomegaly Back Exam: Present: normal inspection, normal range of motion, no CVA tenderness , no vertebral tenderness Extremity Exam: Present: normal inspection, normal range of motion, calf tenderness - LLE, extremity edema - LLE knee to toes +4, RLE +1 knee and ankle Neurological Exam: Present: alert, oriented, normal mood/affect, no motor/ sensory deficits Skin Exam: Present: normal color, warm/dry. Absent: pallor, skin rash ED Progress - Date and Time Seen: Date and Time: 10/08/16 22:49 Pt. needs compression stockings and decreased torsemide but these need to be ordered by her PCP as it is likely affecting her kidneys - Results and Orders Patient's Lab Results:: I have reviewed the patient's lab results. - Vital Signs Patient's Vital Signs:: I have reviewed the patient's vital signs. Vital Signs: Vital Signs 10/08/16 18:56 Temperature 37.4 C Pulse Rate 85 Respiratory 20 Rate Blood Pressure 135/76 O2 Sat by Pulse 100 Oximetry - EKG EKG: NSR, LVH, other - lateral ischemia not acute - CT/Ultrasound CT/Ultrasound Narrative: US and Arterial doppler without clot - Progress/Reassessment Chief Complaint: Lower Extremity Pain/ Injury Progress:: Unchanged Departure Clinical Impression: Edema Qualifiers: Edema type: unspecified Qualified Code(s): R60.9 - Edema, unspecified - Departure Disposition: Home self-care Condition: Good Instructions: Edema, [id number] Additional Instructions: Please get compression stockings thigh high from the pharmacy and follow up with your primary provider to discuss decrease of your torsemide and fitting for personalized compression stockings. Referrals: Quintin Farmer MD [Primary Care Provider] -
[2016-10-08 19:58] LABS: Prothrombin Time (Patient) 9.9 Seconds (9.4-11.4)
[2016-10-08 20:01] LABS: INR 0.95 INR (0.90-1.10); Partial Thrombolplastin Time 25.4 Seconds (24-32)
[2016-10-08 20:08] LABS: Albumin * 3.6 gm/dl (3.4-5.0); Anion Gap 9.5 mmol/L (6.8-13.8); BUN/Creatinine Ratio 12.4 (9.0-21.6); Bilirubin, Total 0.3 mg/dL (0.0-1.1); Ca. Corrected For Albumin 8.7 mg/dL (8.4-10.2); Calcium * 8.7 mg/dL (7.9-10.9); Carbon Dioxide 35.2 mmol/L (24-32.6); Potassium 3.7 mmol/L (3.4-4.6); Total Protein 8.2 gm/dL (6.2-8.2); Troponin I 0.034 ng/ml (0.00-0.10)
[2016-10-08 20:15] LABS: Urine Bilirubin Negative (NEGATIVE); Urine Blood Negative /ul (NEGATIVE); Urine Ketone Negative (NEGATIVE); Urine Nitrite Negative (NEGATIVE); Urine Protein Negative (NEGATIVE); Urine Urobilinogen Normal (NORMAL)
[2016-10-08 20:32] LABS: Urine Appearance Clear; Urine Color Yellow
[2016-10-08 20:33] LABS: Urine Bacteria None Seen; Urine RBC None Seen /hpf (0-5); Urine WBC None Seen /hpf (0-5)
[2016-10-08] MEDS ORDERED: NORMAL SALINE 1,000 ML IV ONE (20:33)
[2016-10-08 23:49] VITALS: BP 150/54
== END 2016-10-08 23:30 | disposition home or self-care (01) ==
LOC: ER 18:45
DX: R60.9 Edema, unspecified (principal); M79.605 Pain in left leg; F41.9 Anxiety disorder, unspecified; F32.9 Major depressive disorder, single episode, unspecified